=== PATIENT | male | born 1940 | race Caucasian/White ===

== ENCOUNTER → 2017-12-10 13:50 | Outpatient (CLI) | payer OTHER, SELFPAY ==
--- NOTE | 2017-12-10 | DI.US.S_ITS ---
PROCEDURE: US CHEST COMPARISON: [facility], CT, CT CHEST WITHOUT CONTRAST, 11/25/2017, 12:24. INDICATIONS: ABNORMAL CHEST CT FLUID ON THE LUNGS FINDINGS: Small left pleural effusion insufficient for safe access for aspiration. IMPRESSION: Thoracentesis was not performed due to insufficient pleural fluid on the left for safe access for thoracentesis. Followup by two-view chest plain film may be warranted in 1 week to determine whether the fluid increases over time to the degree that safe access may be available. Dictated by: Shashank Pickering M.D. on 12/10/2017 at 15:15 Approved by: Shashank Pickering M.D. on 12/10/2017 at 15:16
== END ==
PROVIDERS: Visit Provider Physician Assistant
DX: J90 Pleural effusion, not elsewhere classified (principal)
CPT/HCPCS: 76604

== ENCOUNTER → 2019-05-25 18:18 | Outpatient (ROUT) | payer OTHER, SELFPAY ==
[2019-05-25 18:42] LABS: Alanine Aminotransferase 17 IU/L (21-72); Albumin 4.1 g/dL (3.5-5.0); Albumin Globulin Ratio 1.1 (1.0-2.8); Alkaline Phosphatase 79 U/L (38-126); Aspartate Aminotransferase 23 IU/L (17-59); Bilirubin Total 0.5 mg/dL (0.2-1.3); Blood Urea Nitrogen 24 mg/dL (9-20); Calcium 9.9 mg/dL (8.4-10.2); Carbon Dioxide 32 mmol/L (22-32); Chloride 98 mmol/L (98-107); Estimated Glomerular Filt Rate 58.4 mL/min (>60); Globulin 3.8 g/dL (1.7-4.1); Glucose 97 mg/dL (80-110); HEMOLYSIS < 15 (0-50); Magnesium 2.1 mg/dL (1.6-2.3); Potassium 4.5 mmol/L (3.4-5.1); Sodium 140 mmol/L (137-145); Total Protein 7.9 g/dL (6.3-8.2)
== END ==
PROVIDERS: Visit Provider Internal Medicine
DX: I10 Essential (primary) hypertension (principal); I42.0 Dilated cardiomyopathy; R09.02 Hypoxemia
CPT/HCPCS: 80053; 83735

== ENCOUNTER → 2019-06-02 18:43 | Outpatient (ROUT) | payer OTHER, SELFPAY ==
[2019-06-02 19:22] LABS: B Type Natriuretic Peptide < 100 (<100)
== END ==
PROVIDERS: Visit Provider Internal Medicine
DX: R09.02 Hypoxemia (principal)
CPT/HCPCS: 83880

== ENCOUNTER → 2020-08-27 11:17 | Outpatient (CLI) | payer MEDICARE, SELFPAY ==
[2020-08-27 12:21] LABS: COVID19 -Nasal RAPID Negative (Negative)
== END ==
PROVIDERS: PCP Physician Assistant; Visit Provider Physician Assistant
DX: Z20.822 Contact with and (suspected) exposure to COVID-19 (principal)
CPT/HCPCS: 87635; C9803

== ENCOUNTER 2020-08-30 09:25 | Day surgery (SDC) | payer MEDICARE, SELFPAY ==
--- NOTE | 2020-08-30 | PATH_ITS ---
[facility] Accession Number: [id number] . 01 Material submitted: . knee - LEFT KNEE MASS . 01 Clinical history: . LEFT KNEE BURSECTOMY . 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 See comment. MRV 09/05/2020 1337 Local . 01 Comment: Although urate crystals (gout) and CPPD crystals (pseudogout) are not identified, clinical correlation is recommended. If clinically suspicious for crystal deposition disease, fresh tissue collection for crystal identification would be judicious. . As part of ongoing quality reviewer, this case is also reviewed by Dr. Chau Tran, who concurs with the given interpretation. . 01 Electronically signed: . Zoila Go MD, Pathologist NPI- [id number] . 01 Gross description: . The specimen is received in formalin, labeled left knee mass and consists of a 2.8 x 2.5 x 0.6 cm sullivan fragment of bone with attached sullivan-pink soft tissue and portion of skin measuring 0.7 x 0.6 x 0.1 cm. The margin is inked blue and the specimen is sectioned to reveal diffusely calcified cut surfaces. Sap [employer]ap Programmer sections are submitted following decalcification in cassette A1. (EA:[id number]) /MRV 09/01/2020 1311 Local . 01 Pathologist provided ICD-10: M25.562, M71.462 . 01 CPT . 428212 Performed at: [address] [facility], [place], [place] [id number] MD Axel Batres MD Phone: [phone]
[2020-08-30 09:56] VITALS: BP 124/79; PULSE 100; RESP 26; TEMP 37.1; O2SAT 98; BMI 30.9
[2020-08-30] MEDS: LACTATED RINGERS 1,000 ML 42 ML IV (10:20)
--- NOTE | 2020-08-30 10:27 | PM.PREOP ---
Pre-operative Note COVID-19 COVID-19 status: Negative Interval Note History & Physical reviewed/Exam performed by Physician: Yes Changes to H&P: No
--- NOTE | 2020-08-30 10:27 | PM.OP.1 ---
Operative Date/Time/Diagnoses Date of procedure: 08/30/20 Time of procedure: 10:59 Pre-op diagnosis: left leg mass probable calcific bursa Post-op diagnosis: same Procedure & Clinicians Procedure: left knee bursa excision Same procedure as scheduled: Yes Indications: this 79-year-old gentleman who had a calcific and hard mass on the anterior aspect of his knee in the pretibial area. He underwent a punch biopsy and then had difficulty healing his skin. He was referred for orthopedic consultation. He notes pain when he attempts to kneel on his left leg. Anesthesia Type: Sedation and Local Operative Notes Findings: calcified density in the bursa removed without difficulty. Closure Type: primary Specimen(s): none sent Estimated Blood Loss (mL): 10 Blood products transfused: none Procedure in detail: Patient is brought to the operating room he underwent sedation. His left lower extremities prepped draped standard sterile fashion. A time-out was performed and antibiotics were given. High-thigh tourniquet was applied but not elevated. A dense field block was performed with Marcaine. An incision was made over the anterior aspect of the tibia. The patient's previous punch biopsy wound was ellipsed out. Dissection was carried out through skin and subcutaneous tissues. A 3 cm soft tissue mass which appeared to be in the pretibial bursa was meticulously removed along with the bursa. It was densely calcified. It was sent for pathology. The wound was meticulously irrigated with normal saline. The wound was closed with interrupted nylon. Additional local was injected. Sterile dressing was applied. He tolerated the procedure well and was transferred recovery room in satisfactory condition. Complications: none Post-operative Condition: stable Disposition: same day surgery Plan for aftercare: Dry dressing weight-bearing as tolerated. Suture removal in 10-14 days. Bursa sent for pathology.
[2020-08-30] MEDS: CEFAZOLIN 2 GM/100 ML FROZ.PIGGY IV (10:45)
--- NOTE | 2020-08-30 11:00 | SUR.OPER ---
Supine on padded OR bed, head on pillow, arms secured on padded arm boards at <90 degrees abduction, legs uncrossed, safety belt at thigh, tape over blanket over right lower leg. Left leg sterile draped and in control of the surgeon. Gel pad under right heel.
[2020-08-30] MEDS: BUPIVACAINE 0.5% (PF) VIAL 30 ML INJ (11:03)
[2020-08-30 11:19] VITALS: BP 110/61; PULSE 103; RESP 14; O2SAT 93
[2020-08-30 11:24] VITALS: BP 117/74; PULSE 100; RESP 20; TEMP 37; O2SAT 93
[2020-08-30 11:27] VITALS: BP 121/72; PULSE 108; RESP 22; O2SAT 95
[2020-08-30 11:50] VITALS: BP 120/73; PULSE 103; RESP 16; TEMP 36.7; O2SAT 92
== END 2020-08-30 12:05 | disposition home or self-care (01) ==
PROVIDERS: PCP Physician Assistant; Referring Provider Orthopaedic Surgery; Visit Provider Orthopaedic Surgery
PROC: (CPT 27337; principal; 2020-08-30 10:45)
DX: M71.462 Calcium deposit in bursa, left knee (principal); M25.862 Other specified joint disorders, left knee; E78.5 Hyperlipidemia, unspecified; I50.9 Heart failure, unspecified
CPT/HCPCS: 27337; J0690; J2704; J3010

== ENCOUNTER → 2021-12-12 14:48 | Outpatient (CLI) | payer MEDICARE, SELFPAY ==
--- NOTE | 2021-12-12 14:50 | DI.ECHO.S_ITS ---
[facility]---------+ [facility] +---------+ : : [address] : [place] : : : : [phone] : : : : Phone: [phone]+ Echocardiogram Report + + :Name: RORY OLIVAREZ Study Date: 12/12/2021 Height: 73 in : :[facility] ReadingLocation: Weight: 219 lb: : Gender: Male BSA: 2.2 m2 : :: 1940 Age: 81 yrs BP: 93/64 mmHg: :Reason For Study: HYPOXEMIA : :Ordering Physician: LOLIS, : :BOO Performed By: Eleanor Trujillo : :Referring: BOO DANIELLE : + + Interpretation Summary Left ventricular systolic function remains mildly depressed with an estimated ejection fraction of 45 to 55% with mild global hypokinesis that appears slightly prominent in the distal anterior wall and apex but is unchanged from the previous exam. Left ventricular size is borderline increased with normal wall thickness and is unchanged. Diastolic function remains challenging to assess because of atrial fibrillation. The right ventricle is mildly enlarged and mildly hypokinetic but appears slightly smaller and slightly more dynamic compared to the previous study. Right ventricular systolic pressure is estimated at 26 mmHg plus the clinically estimated CVP. There is borderline left atrial enlargement with normal right atrial size and both are grossly unchanged compared to previous exam. There is moderate mitral regurgitation that is more prominent compared to the previous study but is much better imaged on today's study. There is a bioprosthetic aortic valve that appears well-seated and opens widely suggesting normal prosthetic valve function. The ascending aorta is mildly enlarged at 3.8 cm but unchanged from the previous exam. The patient was in atrial fibrillation at 79 to 102 bpm during the exam. Procedure: A two-dimensional transthoracic echocardiogram with color flow and Doppler was performed. The study quality was technically adequate. Comparison is made with the echocardiogram of 12/17/2019. A contrast injection of Definity was performed to improve assessment of LV function. The patient was in atrial fibrillation with heart rates between 79-102 bpm during the exam. Left Ventricle: Left ventricular size is at the upper limits of normal. The estimated left ventricular end diastolic volume is 121 ml. There is normal left ventricular wall thickness. There is mild proximal septal thickening noted. Left ventricular systolic function is mildly reduced. Left ventricular ejection fraction is estimated to be 50 +/- 5%. There is mild global hypokinesis of the left ventricle. There is slightly worse hypokinesis in the distal anterior wall extending to the apex but this appears unchanged from the previous exam. Diastolic function could not be accurately assessed due to atrial fibrillation. Right Ventricle: The right ventricle is mildly dilated. Right ventricular systolic function is mildly reduced. This is slightly smaller and slightly more dynamic compared to the previous study. Atria: The left atrium is borderline dilated. Right atrial size is normal. There has been no significant change since the previous study. There is no Doppler evidence for an interatrial shunt. Mitral Valve: There is mild mitral annular calcification. The mitral valve leaflets are mildly calcified. There is a flat closure plane of the the mitral valve leaflets. There is borderline mitral valve prolapse. There is moderate mitral regurgitation. This is more prominent but much better imaged compared to the previous study. Aortic Valve: The aortic valve opens well. There is a bioprosthetic aortic valve. The prosthetic aortic valve is well-seated. The gradients through the prosthetic aortic valve are within the normal range for this type of valve. No aortic regurgitation is present. Tricuspid Valve: The tricuspid valve is normal in structure and function. There is trace tricuspid regurgitation. Right ventricular systolic pressure is estimated to be 26 mmHg plus the clinically estimated CVP which cannot be estimated on this exam. Comparison with the previous study is not possible because this was unable to be assessed on the previous study. Pulmonic Valve: The pulmonic valve is not well seen, but is grossly normal. There is trace pulmonic regurgitation. Great Vessels: The ascending aorta is mildly enlarged. This is unchanged compared to the previous study. The inferior vena cava was not well visualized. Pericardium/ Pleura There is no pericardial effusion. There is no pleural effusion. MMode/2D Measurements & Calculations LVIDd: 5.2 cm LVOT diam: 2.0 cm LVIDs: 4.0 cm asc Aorta Diam: 3.8 cm FS: 23.3 % IVSd: 0.77 cm LVPWd: 1.0 cm LV dsouza. diameter/BSA (cm/m^2): 2.3 LV sys. diameter/BSA (cm/m^2): 1.8 LA A2 area: 22.3 cm2 RA long axis: 5.9 cm LA A4 area: 24.1 cm2 RA area: 20.4 cm2 LA length (vol): 6.1 cm RA vol: 60.1 ml LA vol: 75.0 ml RA : 26.9 ml/m2 LA vol index: 33.5 ml/m2 RVD1 (basal): 4.1 cm RVD2 (mid): 3.8 cm TAPSE: 1.6 cm Doppler Measurements & Calculations Ao V2 max: 130.3 cm/sec LVOT Max Pafnilo: 59.1 cm/sec Ao V2 mean: 100.1 cm/sec LV V1 max P.4 mmHg Ao max P.8 mmHg LV V1 VTI: 10.9 cm Ao mean P.3 mmHg ESTEPHANIA(I,D): 1.6 cm2 Ao V2 VTI: 22.2 cm ESTEPHANIA(V,D): 1.4 cm2 sev ratio: 0.49 ESTEPHANIA indexed to BSA (cm^2/m^2): 0.70 MV E max panfilo: 126.6 cm/sec TR max panfilo: 256.4 cm/sec MV A max panfilo: 1.6 cm/sec TR max P.3 mmHg MV E/A: 78.9 PA V2 max: 78.0 cm/sec Med Peak E' Panfilo: 8.9 cm/sec PA V2 mean: 55.2 cm/sec E/E' med: 14.3 PA mean P.4 mmHg MV dec time: 0.16 sec PA pr(Accel): 41.3 mmHg MR ERO: 0.35 cm2 MR PISA: 5.3 cm2 SV(LVOT): 34.6 ml MR flow rate: 179.6 cm3/sec MR PISA radius: 0.92 cm Reading Physician:06:48 PM
== END ==
PROVIDERS: PCP Physician Assistant; Referring Provider Specialist; Visit Provider Specialist
DX: I34.0 Nonrheumatic mitral (valve) insufficiency (principal); I77.89 Other specified disorders of arteries and arterioles; R09.02 Hypoxemia; Z95.2 Presence of prosthetic heart valve
CPT/HCPCS: 93306; Q9957